=== PATIENT | male | born 1975 | race Caucasian/White ===

== ENCOUNTER 2025-04-06 20:10 | Emergency (ER) | payer OTHER ==
[~2025-04-06] VITALS: Ht 180.3 cm; Wt 99.8 kg
[2025-04-06 20:12] VITALS: BP 144/88
[2025-04-06] MEDS ORDERED: CLINDAMYCIN 900MG/D5W 100ML IVPB **ER PYXIS ONLY IJ ONE (20:29)
[2025-04-06] MEDS: CLINDAMYCIN PHOSPHATE IV 900 MG in IV DEXTROSE 5% 100 ML IV ONE (20:35)
[2025-04-06] MEDS ORDERED: CLIN-188 PO (20:43)
[2025-04-06 21:08] VITALS: BP 144/88; TEMP 98; O2SAT 97
== END 2025-04-06 21:09 | disposition home or self-care (01) ==
LOC: ER 20:10
DX: L03.114 Cellulitis of left upper limb (principal); S41.112D Laceration without foreign body of left upper arm, subsequent encounter; C44.91 Basal cell carcinoma of skin, unspecified; Z48.02 Encounter for removal of sutures; Z85.828 Personal history of other malignant neoplasm of skin; X58.XXXD Exposure to other specified factors, subsequent encounter
CPT/HCPCS: 99283; 96374; J3490 ×2; A4606; A4663

== ENCOUNTER 2025-04-25 14:26 | Emergency (ER) | payer OTHER ==
[~2025-04-25] VITALS: Ht 180.3 cm; Wt 97.5 kg
[~2025-04-25 14:26] MED LIST: CLIN-188 PO
[2025-04-25 14:31] VITALS: BP 126/85; O2SAT 98
== END 2025-04-25 14:53 | disposition home or self-care (01) ==
LOC: ER 14:32
DX: Z48.00 Encounter for change or removal of nonsurgical wound dressing (principal); Z85.828 Personal history of other malignant neoplasm of skin
CPT/HCPCS: A4606; A4663